=== PATIENT | female | born 1950 | race Caucasian/White ===

== ENCOUNTER 2023-03-03 11:22 | Outpatient (OUT) | payer MEDICARE, SELFPAY ==
--- NOTE | 2023-03-03 11:45 | PM.CN ---
Consult Note: HPI Data of Consult Patient: known to practice within the last 3 years Consult date: 03/03/23 Requesting Physician: DANIELLE JOYA NP Primary Care Provider: CHARLES ALVA Consult Narrative Narrative: Patient is here for f/u of left low back pain. She had initial left MBB L4/5, L5/S1 on 02/01/23 . She recieved 100% relief of pain with increased fx for several hours after procedure. She would like to proceed with second MBB of same area. No new sensorimotor sx or bowel or bladder issues. Medication regimen is controlling pain and assisting patient with ability to perform ADLs.She does walk with a walker. cc:: CC: DANIELLE JOYA NP Review of Systems ROS Status of ROS 10 or more systems reviewed and unremarkable except as noted in history and below Exam Constitutional Documenting provider has reviewed patient's vital signs: yes Common normals: no apparent distress, oriented x3, healthy appearing and alert Orientation/consciousness: Yes awake, Yes oriented to person, Yes oriented to place and Yes oriented to time HENMT Common normals: normocephalic, nasal mucous membranes and turbinates normal and moist oral mucous membranes Respiratory Common normals: normal respiratory effort, no retractions and no use of accessory muscles Effort & inspection: able to speak in complete sentences and symmetric chest movement Back & Pelvis Lumbar spine/lower back: normal to inspection, ROM limited, pain with ROM, paraspinal muscle tenderness and straight leg raise negative bilaterally Other: facet loading positive left muscle strength 4/5 right, 3/5 left from previous TIA per pt no radicular sx Extremity Common normals: normal to inspection and normal capillary refill Assessment and Plan Assessment and Plan (1) Lumbar spondylosis: (2) Muscle spasm: Plan schedule left lumbar MBB L4/5, L5/S1 under fluoroscopy
== END 2023-03-03 11:23 | disposition home or self-care (01) ==
PROVIDERS: PCP Family Medicine; Visit Provider Nurse Practitioner
DX: M47.816 Spondylosis without myelopathy or radiculopathy, lumbar region (principal); M62.838 Other muscle spasm; M54.50 Low back pain, unspecified
CPT/HCPCS: G0463

== ENCOUNTER 2023-03-22 10:54 | Day surgery (SDC) | payer MEDICARE, SELFPAY ==
[2023-03-22 11:10] VITALS: BP 114/74; PULSE 48; RESP 16; TEMP 36.3; O2SAT 97
--- NOTE | 2023-03-22 11:10 | W.PM.PROCNOT ---
Date of procedure: 03/22/23 Pre-op diagnosis: Lumbar Spondylosis Post-op diagnosis: same Procedure: Left Lumbar 4/5 and 5/Sacral 1 medial branch block Under fluoroscopic guidance Solution injected: 2millilitersMarcaine 0.25% Anesthesia :none Immediate complications none Time out process compliant After informed consent obtained from the patient placed in the Prone proposition . area was prepped and draped in a sterile fashion using betadine. 25 gauge spinal needle inserted over each of the above mentioned target areas . [place] were directed towards the target under fluoroscopic guidance . after encountering each of the targets , no indication of intravascular intraneuronal or intrathecal needle tip placement. Then 0 .5 to 1 Milliliter was injected at each level. [place] removed postoperatively. patient transferred to recovery in stable condition to be discharged home after meeting criteria Surgeon: Judy Escobar
[2023-03-22 11:14] LABS: Glucometer 174 mg/dL (74-106)
[2023-03-22] MEDS: BUPIVACAINE HCL 0.25% PF 25 MG/10 ML VIAL 4 ML INJ (12:03)
[2023-03-22 12:07] VITALS: BP 113/62; BP 145/65; PULSE 56; PULSE 57; RESP 20; O2SAT 96; O2SAT 97
== END 2023-03-22 12:12 | disposition home or self-care (01) ==
LOC: SURGOUT 10:54
PROVIDERS: PCP Family Medicine; Visit Provider Anesthesiology Pain Medicine
DX: M47.816 Spondylosis without myelopathy or radiculopathy, lumbar region (principal)
CPT/HCPCS: 36415; 64493; 64494

== ENCOUNTER 2023-04-01 10:00 | Outpatient (OUT) | payer MEDICARE, SELFPAY ==
--- NOTE | 2023-04-01 10:28 | PM.CN ---
Consult Note: HPI Data of Consult Patient: known to practice within the last 3 years Consult date: 04/01/23 Requesting Physician: Yuliet Ureña NP Primary Care Provider: CHARLES ALVA Consult Narrative Narrative: Azra is here for f/u of second dx lumbar MBB left L4/5, L5/S1 done 03/22/23. She received 95% relief of pain and increased fx for several hours after procedure. She would like to proceed with thermal RFA of same area. No medication SE. No new bowel r bladder issues. No new sensorimotor sx. No radicular sx cc:: CC: Yuliet Ureña NP Review of Systems ROS Status of ROS 10 or more systems reviewed and unremarkable except as noted in history and below Musculoskeletal Reports: back pain PFSH PFSH Medical History (Updated 03/11/23 @ 10:09 by Gena Huntley) Surgical History Meds Home Medications and Allergies Home Medications Medication Instructions Recorded Confirmed Type FIASP SUBCUTANEOUS 1 - 1.5 unit subcut DAILY 03/03/23 03/03/23 History albuterol 90 mcg/actuation aerosol 90 mcg inhalation .Q 4 HOURS 03/03/23 03/03/23 History inhaler baclofen 10 mg tablet 10 mg PO DAILY 03/03/23 03/03/23 History clopidogrel 75 mg tablet (Plavix) 75 mg PO DAILY 03/03/23 03/03/23 History etanercept 25 mg/0.5 mL 25 mg subcut QWEEK 03/03/23 03/03/23 History subcutaneous solution (Enbrel) furosemide 40 mg tablet 40 mg PO BID 03/03/23 03/03/23 History gabapentin 300 mg capsule 300 mg PO BID 03/03/23 03/03/23 History insulin degludec 100 unit/mL (3 94 unit subcut DAILY 03/03/23 03/03/23 History mL) subcutaneous pen (Tresiba FlexTouch U-100 insulin) isosorbide mononitrate 120 mg 180 mg PO DAILY 03/03/23 03/03/23 History tablet,extended release 24 hr levothyroxine 150 mcg capsule 150 mcg PO DAILY 03/03/23 03/03/23 History metoprolol tartrate 25 mg tablet 25 mg PO BID 03/03/23 03/03/23 History nitroglycerin 0.4 mg sublingual 0.4 mg sublingual Q5M 03/03/23 03/03/23 History tablet omeprazole 40 mg capsule,delayed 40 mg PO BID 03/03/23 03/03/23 History release rosuvastatin 40 mg tablet (Crestor) 40 mg PO DAILY 03/03/23 03/03/23 History valsartan 80 mg tablet 80 mg PO DAILY 03/03/23 03/03/23 History Allergies Allergy/AdvReac Type Severity Reaction Status Date / Time cephalexin Allergy Unknown Verified 03/22/23 11:08 chlorophyllin Allergy Unknown Verified 03/22/23 11:08 Penicillins Allergy Unknown Verified 03/22/23 11:08 [id number]-[id number] Reductase Allergy Unknown Verified 03/22/23 11:08 Inhibitor sulfamethoxazole Allergy Unknown Verified 03/22/23 11:08 [From Bactrim] trimethoprim [From Bactrim] Allergy Unknown Verified 03/22/23 11:08 SULFUR Allergy Unknown Uncoded 03/22/23 11:08 Exam Constitutional Documenting provider has reviewed patient's vital signs: yes Common normals: no apparent distress, oriented x3, healthy appearing, alert and well nourished General appearance: cooperative, comfortable and well developed Nutritional appearance: overweight Orientation/consciousness: Yes awake, Yes oriented to person, Yes oriented to place and Yes oriented to time Other: uses cane HENMT Common normals: normocephalic and moist oral mucous membranes Respiratory Common normals: normal respiratory effort, no retractions and no use of accessory muscles Effort & inspection: able to speak in complete sentences and symmetric chest movement Back & Pelvis Lumbar spine/lower back: normal to inspection, ROM limited, pain with ROM, paraspinal muscle tenderness and paraspinal muscle spasm Other: positive lumbar facet loading pain left muscle strength 4/5 bilat LE with intact sensation Assessment and Plan Assessment and Plan (1) Muscle spasm: (2) Lumbar spondylosis: Plan schedule thermal RFA left lumbar L4/5, L5/S1 under fluoroscopy
== END 2023-04-01 10:01 | disposition home or self-care (01) ==
LOC: PM 10:01
PROVIDERS: PCP Family Medicine; Visit Provider Nurse Practitioner
DX: M47.816 Spondylosis without myelopathy or radiculopathy, lumbar region (principal); M62.838 Other muscle spasm
CPT/HCPCS: G0463

== ENCOUNTER 2023-05-24 10:29 | Day surgery (SDC) | payer MEDICARE, SELFPAY ==
[2023-05-24 10:56] VITALS: BP 122/62; PULSE 58; RESP 16; TEMP 36.1; O2SAT 98
[2023-05-24 11:02] LABS: Glucometer 115 mg/dL (74-106)
[2023-05-24] MEDS: 0.9 % SODIUM CHLORIDE 500 ML 50 ML IV (11:12)
[2023-05-24] MEDS: LIDOCAINE HCL 2% 400 MG/20 ML MDV 4 ML INJ (11:58)
[2023-05-24] MEDS: BUPIVACAINE HCL 0.25% PF 25 MG/10 ML VIAL 4 ML INJ (11:58)
[2023-05-24] MEDS: METHYLPREDNISOLONE ACETATE 40 MG/ML VIAL INJ (11:59)
[2023-05-24 12:14] VITALS: BP 76/37; PULSE 57; RESP 16; TEMP 36.1; O2SAT 97
[2023-05-24 12:17] VITALS: BP 89/49; PULSE 55; RESP 18; TEMP 36.1; O2SAT 96
[2023-05-24 12:20] VITALS: BP 92/56; PULSE 56; RESP 20; O2SAT 94
--- NOTE | 2023-05-24 12:38 | W.PM.PROCNOT ---
Date of procedure: 05/24/23 Pre-op diagnosis: Lumbar spondylosis Post-op diagnosis: same as pre-op Procedure: Left Lumbar 4/5, 5/S1 Radiofrequency ablation Under fluoroscopic guidance Rhizotomy was created using radio frequency ablation at 80?C for 90 seconds 1 to 2 lesions created at each site. Post lesioning injection of 2 mL each of 0.25% Marcaine and 2% lidocaine with Depo-Medrol 40mg. 0.5 to 1 mL injected at each site IV in place yes If Intravenous fluids: NS at KVO Anesthesia local 2% lidocaine for Anesthesia Other: MAC Timeout process compliant After informed consent obtained.Patient brought to the procedure room placed in the prone position skin overlying the area was prepped and draped in a sterile fashion using betadine. 25 gauge needle was used to create a skin wheal over each of the targeted areas utilizing 2% lidocaine. A rhizotomy needle with a 10 mm active tip was inserted over each of the anesthetized areas and directed towards each of the medial branches accomplished under fluoroscopic guidance. after encountering the same we had positive sensory stimulation, negative motor stimulation was noted. lesions were then created. Post lesioning, steroid solution was injected needles removed. Patient was transferred to recovery room in stable condition to be discharged home after meeting criteria. Anesthesia: MAC Surgeon: Judy Escobar Condition: stable
== END 2023-05-24 12:31 | disposition home or self-care (01) ==
LOC: SURGOUT 10:29
PROVIDERS: PCP Family Medicine; Visit Provider Anesthesiology Pain Medicine
DX: M47.816 Spondylosis without myelopathy or radiculopathy, lumbar region (principal); Z79.4 Long term (current) use of insulin
CPT/HCPCS: 36415; 36416; 64635; 64636; 82948; J1030; J2704

== ENCOUNTER 2023-06-23 09:05 | Outpatient (OUT) | payer MEDICARE, SELFPAY ==
--- NOTE | 2023-06-23 09:18 | P.CN_ITS ---
Consult Note: HPI Data of Consult Patient: known to practice within the last 3 years Requesting Physician: Yuliet Ureña NP Primary Care Provider: CHARLES ALVA Consult Narrative Reason for consult: f/u Narrative: Azar Anglin a pleasant 73 year old female presents for evaluation and management of chronic low back pain. Following up after left L4-5 L5-s1 RFA. Reports greater than 80% ongoing pain relief as a result of this procedure and functional improvement. Patient rating pain today 1/10 in low back. Has been experiencing chronic numbness tingling and weakness in left hand and would like to discuss this today. cc:: CC: Yuliet Ureña NP Review of Systems ROS Status of ROS 10 or more systems reviewed and unremarkable except as noted in history and below Musculoskeletal Reports: back pain PFSH PFSH Medical History (Updated 06/23/23 @ 09:41 by Yuliet Ureña NP) Acid reflux ?K21.9 - Gastro-esophageal reflux disease without esophagitis (ICD-10) Anemia ?D64.9 - Anemia, unspecified (ICD-10) Angina at rest ?I20.8 - Other forms of angina pectoris (ICD-10) Cirrhosis ?K74.60 - Unspecified cirrhosis of liver (ICD-10) Diabetes ?E11.9 - Type 2 diabetes mellitus without complications (ICD-10) Hypertension ?I10 - Essential (primary) hypertension (ICD-10) Kidney failure ?N19 - Unspecified kidney failure (ICD-10) Labial cyst ?N90.7 - Vulvar cyst (ICD-10) Low back pain ?M54.50 - Low back pain, unspecified (ICD-10) Neck pain ?M54.2 - Cervicalgia (ICD-10) Osteoarthritis ?M19.90 - Unspecified osteoarthritis, unspecified site (ICD-10) Psoriatic arthritis ?L40.50 - Arthropathic psoriasis, unspecified (ICD-10) Skin cancer ?C44.90 - Unspecified malignant neoplasm of skin, unspecified (ICD-10) Smoker ?F17.200 - Nicotine dependence, unspecified, uncomplicated (ICD-10) TIA (transient ischemic attack) ?G45.9 - Transient cerebral ischemic attack, unspecified (ICD-10) Upper back pain ?M54.9 - Dorsalgia, unspecified (ICD-10) Surgical History H/O arthroscopic knee surgery ?Z98.890 - Other specified postprocedural states (ICD-10) H/O breast biopsy ?Z98.890 - Other specified postprocedural states (ICD-10) H/O cardiac catheterization ?Z98.890 - Other specified postprocedural states (ICD-10) H/O cataract removal with insertion of prosthetic lens ?Z98.49 - Cataract extraction status, unspecified eye (ICD-10) ?Z96.1 - Presence of intraocular lens (ICD-10) H/O elbow surgery ?Z98.890 - Other specified postprocedural states (ICD-10) H/O exploratory laparotomy ?Z98.890 - Other specified postprocedural states (ICD-10) H/O gastric bypass ?Z98.84 - Bariatric surgery status (ICD-10) H/O thyroidectomy ?E89.0 - Postprocedural hypothyroidism (ICD-10) H/O tubal ligation ?Z98.51 - Tubal ligation status (ICD-10) H/O: ?Z98.891 - History of uterine scar from previous surgery (ICD-10) History of appendectomy ?Z90.49 - Acquired absence of other specified parts of digestive tract (ICD- 10) History of dilatation and curettage ?Z98.890 - Other specified postprocedural states (ICD-10) History of tonsillectomy ?Z90.89 - Acquired absence of other organs (ICD-10) Hx of total knee arthroplasty ?Z96.659 - Presence of unspecified artificial knee joint (ICD-10) S/P lymph node biopsy ?Z98.890 - Other specified postprocedural states (ICD-10) Status post cryoablation ?Z98.890 - Other specified postprocedural states (ICD-10) Status post hip surgery ?Z98.890 - Other specified postprocedural states (ICD-10) Meds Home Medications and Allergies Home Medications Medication Instructions Recorded Confirmed Type FIASP SUBCUTANEOUS 1 - 1.5 unit subcut DAILY 03/03/23 05/24/23 History albuterol 90 mcg/actuation aerosol 90 mcg inhalation .Q 4 HOURS 03/03/23 05/24/23 History inhaler baclofen 10 mg tablet 10 mg PO DAILY 03/03/23 05/24/23 History clopidogrel 75 mg tablet (Plavix) 75 mg PO DAILY 03/03/23 05/24/23 History etanercept 25 mg/0.5 mL 25 mg subcut QWEEK 03/03/23 05/24/23 History subcutaneous solution (Enbrel) furosemide 40 mg tablet 40 mg PO BID 03/03/23 05/24/23 History gabapentin 300 mg capsule 300 mg PO BID 03/03/23 05/24/23 History insulin degludec 100 unit/mL (3 94 unit subcut DAILY 03/03/23 05/24/23 History mL) subcutaneous pen (Tresiba FlexTouch U-100 insulin) isosorbide mononitrate 120 mg 180 mg PO DAILY 03/03/23 05/24/23 History tablet,extended release 24 hr levothyroxine 150 mcg capsule 150 mcg PO DAILY 03/03/23 05/24/23 History nitroglycerin 0.4 mg sublingual 0.4 mg sublingual Q5M 03/03/23 05/24/23 History tablet omeprazole 40 mg capsule,delayed 40 mg PO BID 03/03/23 05/24/23 History release rosuvastatin 40 mg tablet (Crestor) 40 mg PO DAILY 03/03/23 05/24/23 History valsartan 80 mg tablet 80 mg PO DAILY 03/03/23 05/24/23 History Allergies Allergy/AdvReac Type Severity Reaction Status Date / Time cephalexin Allergy Unknown Verified 05/24/23 11:06 chlorophyllin Allergy Unknown Verified 05/24/23 11:06 Penicillins Allergy Unknown Verified 05/24/23 11:06 Fztefvk-WCX-PjJ Reductase Allergy Unknown Verified 05/24/23 11:06 Inhibitor sulfamethoxazole Allergy Unknown Verified 05/24/23 11:06 [From Bactrim] trimethoprim [From Bactrim] Allergy Unknown Verified 05/24/23 11:06 SULFUR Allergy Unknown Uncoded 05/24/23 11:06 Exam Constitutional Documenting provider has reviewed patient's vital signs: yes Common normals: no apparent distress, oriented x3, healthy appearing, alert and well nourished General appearance: cooperative Nutritional appearance: overweight Orientation/consciousness: Yes awake, Yes oriented to person, Yes oriented to place and Yes oriented to time Other: uses cane HENMT Common normals: normocephalic, hearing grossly normal bilaterally and moist oral mucous membranes Head and scalp: normocephalic Eye Common normals: PERRL Pupil: PERRL Neck & C-Spine Common normals: full ROM General: normal visual inspection Other: positive spurlings radiculopathy to left hand following c7,8 dermatomes with intermittent weakness Chest Common normals: inspection of chest normal Respiratory Common normals: normal respiratory effort, no retractions and no use of accessory muscles Effort & inspection: able to speak in complete sentences and symmetric chest movement Back & Pelvis Thoracic spine/upper back: ROM limited and kyphosis present Lumbar spine/lower back: normal to inspection, ROM limited, pain with ROM, paraspinal muscle tenderness and paraspinal muscle spasm Other: muscle strength 4/5 bilat LE with intact sensation Extremity Common normals: full ROM Neuro Common normals: oriented x3, CN's II-XII intact bilaterally, moves all extremit ies, no focal motor deficits, no sensory deficits noted and deep tendon reflexes 2+ bilaterally Sensorium/orientation: alert Speech: speech normal Gait (neuro): antalgic and assistive device used cane Motor exam: no movement abnormalities noted and strength abnormal (4/5 BLE) Psych Common normals: mental status grossly normal, thought process normal, cooperative, affect normal, speech normal and activity/motor behavior normal Speech: normal speech Thought process: normal thought process Results Additional Findings Additional findings: I have checked an [facility] report on this patient today and there are no aberrancies noted in the prescribing history.?? A drug screen was completed and reviewed within the last year, and if there has not been a drug screen completed we ordered one today to monitor higher risk, state monitored pain medication use. As part of providing excellent, safe, comprehensive care, the following was completed at our patient's visit: 1. A medication reconciliation and review to ensure accurate knowledge of current/active medications, including asking our patients to inform us about any [id number] medications or herbal remedies/nutritional supplements/alternative remedies. 2. A review to specifically ensure our patients have had annual screening for: elevated body mass index (BMI), tobacco use, screening for depression, and screening for unhealthy alcohol use. When screening is concerning, patients are provided with education and the specific recommendation to discuss the concerning health issue and treatment options with their primary care provider. Assessment and Plan Assessment and Plan (1) Lumbar spondylosis: (2) Cervical radiculopathy: (3) Muscle spasm: Plan continues to have 90% pain relief and functional improvement ongoing after left L4-5 L5-S1 RFA cervical spine xray increase gabapentin to 300mg TID f/u 2 weeks
== END 2023-06-23 09:06 | disposition home or self-care (01) ==
LOC: PM 09:06
PROVIDERS: PCP Family Medicine; Visit Provider Nurse Practitioner
DX: M47.896 Other spondylosis, lumbar region (principal); M54.12 Radiculopathy, cervical region; M62.838 Other muscle spasm
CPT/HCPCS: G0463